=== PATIENT | female | born 1945 | race Caucasian/White ===

== ENCOUNTER 2017-02-13 09:25 | Emergency (ER) | payer OTHER ==
[2017-02-13 09:34] VITALS: RESP 16; TEMP 98.4
--- NOTE | 2017-02-13 10:07 | EDPHY ---
H & P Time Seen by Provider: 02/13/17 09:45 HPI/ROS: CHIEF COMPLAINT: Left knee pain HISTORY OF PRESENT ILLNESS: Patient has a cough and a chest cold for the last 4 days and went to see her doctor yesterday. She has been treated symptomatically. She woke up at 2:00 a.m. with a coughing fit and noticed sudden pain in the medial aspect of her left knee and it was worse with trying to move it. She can't straighten fully. She does not have chest pain or shortness of breath right now. No fever and no skin changes on the leg. No fall , no weakness or numbness in foot. REVIEW OF SYSTEMS: No recent injury or trauma. She has had a little left groin pain for the last month, feels like a muscle pull. Sore throat but normal ability to breathe and swallow. 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 Social history: Current nonsmoker General Appearance: Alert and conversant, cooperative. Speaks in full sentences, no respiratory distress. Some mild pharyngeal erythema but no trismus or exudate, uvula midline. Normal voice, no stridor or hoarseness. Normal ROM of neck. No respiratory distress. Moist mucus membranes. Left knee bent at 90 degrees, she has full flexion but can only extend to 170 Joint line pain to palpation both medially and laterally. Stable to varus and valgus stress as well as A and P drawer. Normal motor (flex and extend foot, normal EHL) sensory to light touch, and dorsalis pedis pulse in the left foot. Skin is not warm to the touch, no redness or lymphangitis or blisters or crepitus. Compartments soft to palpation. Emergency Department course/MDM: Most likely to be meniscal injury. Plan for ultrasound and x-ray. 1121: negative US per Haley. Leg immobilizer, ortho referral, ice, OTC pain medications. I think that DVT, fracture, septic joint or other infection, sciatica, vascular problem, compartment syndrome all unlikely. Patient declined pain medication. She is stable with ambulation. Further recommendations for treatment of her chest cold is deferred to her PCP. She does not appear to have strep, airway compromise, or respiratory distress , or difficulty swallowing. Smoking Status: Former smoker Constitutional: Initial Vital Signs Temperature (C) 36.9 C 02/13/17 09:31 Heart Rate 94 02/13/17 09:31 Respiratory Rate 16 02/13/17 09:31 Blood Pressure 150/64 H 02/13/17 09:31 O2 Sat (%) 96 02/13/17 09:31 O2 Delivery Mode Room Air Allergies/Adverse Reactions: Penicillins Allergy (Verified 02/13/17 09:30) Home Medications: Medication Instructions Recorded Lipitor 02/13/17 Metformin HCl 02/13/17 Medical Decision Making - Diagnostics Imaging Results: Imaging Impressions Extremity Venous Study 02/13/17 10:05 Impression: There is no sonographic evidence of deep or superficial vein thrombosis in the left lower extremity. Findings were discussed with JORGITO EWING MD at 11:20, on 02/13/2017. Knee X-Ray 02/13/17 10:05 Impression: No acute osseous abnormality. If there is further clinical concern regarding the patient's knee pain, MR imaging could be considered. Departure - Departure Disposition: Home, Routine, Self-Care Clinical Impression: Degeneration of meniscus of left knee Condition: Good Instructions: Knee Pain (ED) Additional Instructions: Knee brace for 48 hr then activity as tolerated. Please follow up with Orthopedics this week or next week. Ultrasound did not show blood clot or Mcdermott cyst. Referrals: Belkis Marquez MD [Primary Care Provider] - As per Instructions Mart Oliveira MD [Medical Doctor] - As per Instructions
[2017-02-13 11:40] VITALS: BP 143/81; PULSE 93; O2SAT 93
== END 2017-02-13 11:56 | disposition home or self-care (01) ==
DX: M23.307 Other meniscus derangements, unspecified meniscus, left knee (principal); E11.9 Type 2 diabetes mellitus without complications; J44.9 Chronic obstructive pulmonary disease, unspecified; Z79.84 Long term (current) use of oral hypoglycemic drugs; Z87.891 Personal history of nicotine dependence
CPT/HCPCS: 73564; 93971; 99284; L1830

== ENCOUNTER 2017-11-12 08:20 | Emergency (ER) | payer OTHER ==
[2017-11-12 08:27] VITALS: BP 162/106
[2017-11-12] MEDS ORDERED: OXYCODONE/APAP 5/325 TAB PO ONE (09:03)
--- NOTE | 2017-11-12 09:03 | EDPHY ---
H & P Stated Complaint: R foot injury Time Seen by Provider: 11/12/17 08:56 HPI/ROS: HPI: This is a 72-year-old female who presents with Chief Complaint: Right foot pain Location: Right big toe and medial ankle Quality: Pain Duration: Upon waking this morning, 1-3 hours Signs and Symptoms: No bleeding, no radiation, no numbness, no weakness, no tingling, no incontinence, no decreased range of motion, no swelling, + pain, no fever Timing: Acute Severity: 6 out of 10 Context: Patient has a history of type 2 diabetes mellitus controlled by oral agents presents with upon waking this morning and bearing weight on her right foot she felt a popping sensation at the base of her 1st toe and then accompanied by pain in her 1st toe and her medial posterior ankle. Denies any trauma/injury. No skin color changes. Denies calf pain/leg swelling. Was on a fluoroquinolone 1 year ago. Pain is worsened with weight-bearing. Pain is Nonradiating in nature. No prior history of gouty arthropathy. Modifying Factors: none Comment: ROS: A comprehensive 10 system review of systems is otherwise negative aside from elements mentioned in the history of present illness. MEDICAL/SURGICAL/SOCIAL HISTORY: Medical history: DM, rectal fistula, COPD Surgical history: Appendectomy Social history: Former smoker, originally from [place], [place]. CONSTITUTIONAL: Extremely polite and cooperative elderly white female, son at bedside, awake and alert, no obvious distress HEENT: Atraumatic and normocephalic. NECK: supple EXTREMITIES: 2/2 pulses, strength 5/5, right Ankle: Plantar flexion to 50, dorsiflexion to 20. Foot inversion to 35 degree. No tenderness/swelling Anterior talofibular ligament. No tenderness/swelling Calcaneofibular ligament , no tenderness/swelling posterior talofibular ligament, no tenderness/swelling posterior inferior tibiofibular ligament. Negative Homans sign. Achilles tendon intact. Right great toe shows no erythema/warmth. Mild tenderness at the base of the metatarsal. No obvious deformity appreciated. No tenderness at the pad of the foot indicating Haas's neuroma. DIP/PIP/MCP flexion/ extension intact with good light touch sensation. no deformities, no clubbing, no cyanosis or edema. NEUROLOGICAL: no focal neuro deficits. GCS 15. Light touch sensation intact. SKIN: Warm and dry, no erythema. no rash. Good capillary refill. Source: Patient Exam Limitations: No limitations - Personal History Current Tetanus/Diphtheria Vaccine: Yes Current Tetanus Diphtheria and Acellular Pertussis (TDAP): Yes - Medical/Surgical History Hx Asthma: Yes Hx Chronic Respiratory Disease: Yes Hx Diabetes: Yes Hx Cardiac Disease: No Hx Renal Disease: No Hx Cirrhosis: No Hx Alcoholism: No Hx HIV/AIDS: No Hx Splenectomy or Spleen Trauma: No Other PMH: DM, appy, rectal fistula, COPD, - Social History Smoking Status: Former smoker Constitutional: Initial Vital Signs Temperature (C) 36.7 C 11/12/17 08:26 Heart Rate 72 11/12/17 08:26 Respiratory Rate 16 11/12/17 08:26 Blood Pressure 162/106 H 11/12/17 08:26 O2 Sat (%) 93 11/12/17 08:26 O2 Delivery Mode Room Air Allergies/Adverse Reactions: Penicillins Allergy (Verified 11/12/17 08:25) Home Medications: Medication Instructions Recorded Metformin HCl 02/13/17 oxyCODONE/APAP 5/325 [Percocet 1 - 2 tab PO Q4H PRN #10 tab 11/12/17 5/325 (*)] Medical Decision Making Procedures: Procedure: Splint placement. A right walking boot was applied by the Emergency Room master fire control technician. After application of the splint I returned and re-examined the patient. The splint was adequately immobilizing the joint and distal to the splint the patient's circulation and sensation was intact. ED Course/Re-evaluation: Vital signs reviewed and stable upon arrival. Fingerstick blood sugar this morning was 174. Patient has politely declined x-ray imaging as no trauma or injury which I feels appropriate. It appears to be a tendinopathy. Will place patient in a walking boot with orthopedic follow-up. Given Percocet in the emergency room with adequate pain relief. No signs of neurovascular compromise/tenting of skin/compartment syndrome/ extremities and joints examined above and below area of concern and are neurovascularly intact/septic arthritis/got a arthropathy. This patient was seen under the supervision of my secondary supervising physician. I evaluated care for this patient independently. Discussed this patient with Dr. Ryan. Differential Diagnosis: Ankle injury differential diagnosis includes but is not limited to tibia fracture, fibula fracture, metatarsal fracture, LisFranc fracture, achilles tendon rupture, sprain. Departure - Departure Disposition: Home, Routine, Self-Care Clinical Impression: Tendinitis of toe Condition: Good Instructions: Metatarsalgia (DC), Tendinitis (ED) Additional Instructions: Wear the walking boot while out of bed until pain free. Take Tylenol 650 mg every 4 hours and/or Ibuprofen 600 mg every 8 hours with food as needed for pain. Use Percocet every 6 hours as needed for severe/break through pain. Do not use Tylenol and Percocet concomitantly. Apply ice for 30 minutes at a time; 2-3 times per day for the next 1-2 days. Follow up with Orthopedics in 7-10 days if symptoms persist at which time they will evaluate and recommend with you if conservative management versus imaging is indicated. Referrals: Belkis Marquez MD [Primary Care Provider] - As per Instructions Fernando Fulton MD [Medical Doctor] - As per Instructions Prescriptions: oxyCODONE/APAP 5/325 [Percocet 5/325 (*)] 1 - 2 tab PO Q4H PRN #10 tab PRN Reason: Pain, Severe
== END 2017-11-12 09:25 | disposition home or self-care (01) ==
DX: M77.9 Enthesopathy, unspecified (principal); Z87.891 Personal history of nicotine dependence
CPT/HCPCS: 99283; L4386

== ENCOUNTER → 2018-05-13 | Outpatient (CLI) | payer OTHER | LOC: FIMAGING 10:57 | PROVIDERS: ATTEND Internal Medicine | DX: J40 Bronchitis, not specified as acute or chronic (principal); J98.4 Other disorders of lung ==

== ENCOUNTER → 2018-08-19 | Outpatient (CLI) | payer OTHER | LOC: FIMAGING 07:31 ==